=== PATIENT | female | born 1995 | race Caucasian/White ===

== ENCOUNTER 2019-01-01 00:05 | Inpatient (IN) | payer OTHER ==
[2019-01-01 00:34] LABS: APPEARANCE,URINE SLIGHTLY-CLOUDY; BILIRUBIN,URINE NEGATIVE (NEGATIVE); COLOR,URINE YELLOW; GLUCOSE, URINE NEGATIVE (NEGATIVE); KETONES,URINE NEGATIVE (NEGATIVE); LEUKOCYTE ESTERASE,URINE SMALL (NEGATIVE); NITRITE,URINE NEGATIVE (NEGATIVE); PROTEIN,URINE NEGATIVE (NEGATIVE); URINE SPECIFIC GRAVITY 1.011; UROBILINOGEN,URINE NEGATIVE mg/dL (<2.0)
[2019-01-01 00:59] LABS: URINE AMPHETAMINES SCREEN NEGATIVE; URINE BARBITURATES SCREEN NEGATIVE; URINE BENZODIAZEPINES SCREEN NEGATIVE; URINE COCAINE SCREEN NEGATIVE; URINE MARIJUANA (THC) SCREEN NEGATIVE; URINE METHADONE SCREEN NEGATIVE; URINE PHENCYCLIDINE SCREEN NEGATIVE
[2019-01-01] MEDS ORDERED: RINGERS SOLUTION,LACTATED 1,000 ML IV ONE (00:59)
[2019-01-01 01:26] LABS: ABSOLUTE BASOPHILS # (AUTO) 0.1 10^3/uL (0.0-0.2); ABSOLUTE EOSINOPHILS # (AUTO) 0.2 10^3/uL (0.0-0.6); ABSOLUTE LYMPHOCYTES (AUTO) 2.6 10^3/uL (0.5-4.7); ABSOLUTE MONOCYTES (AUTO) 1.3 10^3/uL (0.1-1.4); ABSOLUTE NEUT (AUTO) 8.6 10^3/uL (1.7-8.2); EOSINOPHILS % (AUTO) 1.9 % (0-6); HEMATOCRIT 38.7 % (36.0-47.0); HEMOGLOBIN 13.4 g/dL (12.0-15.5); LYMPHOCYTES % (AUTO) 20.4 % (13-45); MEAN CORPUSCULAR HGB CONC 34.6 g/dL (32.0-36.0); MEAN CORPUSCULAR VOLUME 90 fl (80-97); PLATELET COUNT 195 10^3/uL (150-450); RED BLOOD COUNT 4.32 10^6/uL (3.72-5.28); RED CELL DISTRIBUTION WIDTH 12.8 % (11.5-14.0); SEGMENTED NEUTROPHILS % (AUTO) 66.7 % (42-78); TOTAL CELLS COUNTED % (AUTO) 100 %; WHITE BLOOD COUNT 12.8 10^3/uL (4.0-10.5)
[2019-01-01] MEDS: RINGERS SOLUTION,LACTATED 1,000 ML IV PRN ×3 (01:28→03:20)
[2019-01-01] MEDS ORDERED: VANCOMYCIN HCL INJ 1000 MG VIAL ONE (02:11)
--- NOTE | 2019-01-01 02:12 | Admission Physical ---
Datetime Report Generated by CPN: 01/01/2019 02:12 CURRENT ADMISSION Chief Complaint: Uterine Contractions Indication for Induction: Not Applicable; PROM Admit Impression : Term, Intrauterine Admit Plan: Initiate Labor Protocol ALLERGIES Medication Allergies: Yes Medication Allergies: Penicillins (01/01/2019) Latex: No Latex Allergies OBSTETRICAL HISTORY EDC: 01/02/2019 00:00 : 1 Para: 0 Term: 0 : 0 SAB: 0 IAB: 0 Ectopic: 0 Livin Cesareans: 0 VBACs: 0 Multiple Births: 0 Gestational Diabetes: No Rh Sensitization: No Incompetent Cervix: No JOSE F: No Infertility: No ART Treatment: No Uterine Anomaly: No IUGR: No Hx Previous C/S: No Macrosomia: No Hx Loss/Stillborn: No PIH: No Hx : No Placenta Previa/Abruption: No Depression/PP Depression: No PTL/PROM: No Post Hemorrhage: No Current Procedures: Ultrasound Obstetrical History Comments: G1-Current SEE RECORDS Alcohol: No Marijuana : No Cocaine: No Other Illicit Drugs: No Cigarettes: Never Smoker. 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 Surgery: No Heart Disease: No Hosp/Surgery: Yes Autoimmune Disorder: No Anesthetic Complications: No Kidney Disease: No Abnormal Pap Smear: No Neuro/Epilepsy: No Psychiatric Disorders: No Other Medical Diseases: No Hepatitis/Liver Disease: No Significant Family History: No Varicosities/Phlebitis: No Trauma/Violence : No Thyroid Dysfunction: No Medical History Comments: wisdom teeth removed INFECTIOUS HISTORY Gonorrhea: No Genital Herpes: No Chlamydia: No Tuberculosis: No Syphilis: No Hepatitis: No HIV/AIDS Exposure: No Rash or Viral Illness: No HPV: No PHYSICAL EXAM General: Normal HEENT: Normal Neurologic: Normal Thyroid: Normal Heart: Normal Lungs: Normal Breast: Deferred Back: Normal Abdomen: Normal Genitourinary Exam: Normal Extremities: Normal DTRs: Normal Pelvic Type: Adequate FETUS A EGA: 39.6 PLANS FOR LABOR AND DELIVERY Labor and Delivery: None Pain Management: Epidural Feeding Preference: Breast Benefit of Breast Feed Discussed: Yes Circumcision: N/A INFORMED CONSENT Signature: with User ID: [email or web address]
[2019-01-01] MEDS ORDERED: EPHEDRINE SULFATE INJ 50 MG/1 ML AMPULE ONE (02:35)
[2019-01-01] MEDS ORDERED: MISOPROSTOL 0.2 MG TABLET ONE (02:35)
[2019-01-01] MEDS ORDERED: PHENYLEPHRINE HCL INJ/PF 10 MG/1 ML SDV ONE (02:35)
[2019-01-01] MEDS ORDERED: FENTANYL CITRATE INJ/PF 100 MCG/2 ML AMPUL ONE (02:35)
[2019-01-01] MEDS ORDERED: OXYTOCIN/NORMAL SALINE 20 UNIT/1,000 ML RTUINJ ONE (02:36)
[2019-01-01] MEDS ORDERED: FENTANYL/BUPIVACAINE/NS/PF 300 MCG/150 ML RTUINJ EPI ONE (02:36)
[2019-01-01] MEDS ORDERED: LIDOCAINE 1% INJ-PF (10 MG/ML) 30 ML SDV ONE (02:36)
[2019-01-01] MEDS ORDERED: BUPIVACAINE HCL 0.25 % INJ/PF (2.5 MG/1 ML) 30 ML VIAL ONE (02:36)
[2019-01-01] MEDS ORDERED: VANCOMYCIN HCL 500 MG in DEXTROSE 5%-WATER 100 ML IV ONE (03:00)
[2019-01-01] MEDS ORDERED: OXYTOCIN/NORMAL SALINE 20 UNIT/1,000 ML RTUINJ IV PRN ×2 (06:21→11:48)
[2019-01-01] MEDS ORDERED: VANCOMYCIN HCL 1,000 MG in DEXTROSE 5%-WATER 250 ML IV SCH ×2 (10:00→14:00)
[2019-01-01] MEDS ORDERED: OXYTOCIN 10 UNIT/ML VIAL ONE (11:23)
[2019-01-01] MEDS ORDERED: DIPHENHYDRAMINE HCL 25 MG CAPSULE PO PRN (11:48)
[2019-01-01] MEDS ORDERED: DIBUCAINE 1% OINTMENT 56 GM TP PRN (11:48)
[2019-01-01] MEDS ORDERED: MEASLES,MUMPS&RUBELLA VACC/PF 0.5 ML VIAL SUBCUT PRN (11:48)
[2019-01-01] MEDS ORDERED: PROMETHAZINE HCL 25 MG SUPP.RECT PR PRN (11:48)
[2019-01-01] MEDS ORDERED: MISOPROSTOL 0.2 MG TABLET PR PRN (11:48)
[2019-01-01] MEDS ORDERED: GLYCERIN/WITCH HAZEL LEAF 1 EACH MED..WIPE TP PRN (11:48)
[2019-01-01] MEDS ORDERED: ACETAMINOPHEN WITH CODEINE #3 TABLET PO PRN (11:48)
[2019-01-01] MEDS ORDERED: BENZOCAINE/MENTHOL AEROSOL SPRAY 56 ML TOP PRN (11:48)
[2019-01-01] MEDS ORDERED: MAGNESIUM HYDROXIDE SUSP 30 ML UDCUP PO PRN (11:48)
[2019-01-01] MEDS ORDERED: NA PHOS,M-B/NA PHOS,DI-BA (ADULT) 133 ML ENEMA PR PRN (11:48)
[2019-01-01] MEDS ORDERED: PSEUDOEPHEDRINE HCL 30 MG TABLET PO PRN (11:48)
[2019-01-01] MEDS ORDERED: ACETAMINOPHEN 650 MG SUPP.RECT PR PRN (11:48)
[2019-01-01] MEDS ORDERED: PROMETHAZINE HCL INJ 25 MG/1 ML VIAL IV PRN (11:48)
[2019-01-01] MEDS ORDERED: PROMETHAZINE HCL 25 MG TABLET PO PRN (11:48)
[2019-01-01] MEDS ORDERED: DIPH/PERTUSS(ACELL)/TETANUS VAC/PF 0.5 ML SYR (>=10YO) IM PRN (11:48)
[2019-01-01] MEDS ORDERED: BENZOCAINE/MENTHOL AEROSOL SPRAY 56 ML ONE (12:41)
[2019-01-01 14:01] LABS: RUBELLA INTERPRETATION POSITIVE
--- NOTE | 2019-01-01 14:06 | Delivery Summary ---
Del Sum A-C Datetime Report Generated by CPN: 01/01/2019 14:06 DELIVERY PERSONNEL DELIVERY PERSONNEL: [id number] Delivery Doctor:: Christie Leahy CNM Labor and Delivery Nurse:: Lila Peres RN Rat Poisoner/ORACLE SOA ARCHITECT: Joan Vega, WATER MECHANIC Rat Poisoner/ORACLE SOA ARCHITECT: Brenda, WATER MECHANIC Additional Personnel: : She Julian, RN MATERNAL INFORMATION Delivery Anesthesia: Epidural Medications After Delivery: Pitocin 10 Units IM Maternal Complications: None Provider Comments: viable female from OP to YOSEPH over 2nd degree laceration, tight nuchal cord, unable to reduce before delivery, placed on mothers abd, cord clamped after 2 minutes by father of baby, baby vigorously crying, spont delivery of grossly nl intact placenta, 3 VS, lacerations repaired without difficulty, FFFM, cytotec 600 mcg and Pitocin 10 IM due to IV out Baby and mom remain in recovery in stable condition (Annotations: Data stored by CPN on behalf of user) LABOR SUMMARY EDC: 01/02/2019 00:00 No. Babies in Womb: 1 Attempted: No Labor Anesthesia: Epidural LABOR INFORMATION Reason for Induction: Not Applicable Onset of Labor: 01/01/2019 23:20 Complete Dilatation: 01/01/2019 09:09 Oxytocin: Augmentation Group B Beta Strep: Positive Antibiotics # of Doses: 1 Antibiotics Time of Last Dose: 2158 Name of Antibiotic Given: Vancomycin Steroids Given: None Reason Steroids Not Administered: Not Applicable MEMBRANES Membranes Rupture Method: Spontaneous Rupture of Membranes: 12/31/2018 23:20 Length of Rupture (hr): 12.00 Amniotic Fluid Color: Clear Amniotic Fluid Amount: Moderate Amniotic Fluid Odor: Normal STAGES OF LABOR Stage 1 hr: -14 Stage 1 min: -11 Stage 2 hr: 2 Stage 2 min: 11 Stage 3 hr: 0 Stage 3 min: 5 Total Time in Labor hr: -11 Total Time in Labor min: -55 VAGINAL DELIVERY Episiotomy: None Laceration #1: Perineal; Vaginal Laceration Extension #1: Second Degree Laceration Repair: Yes Laceration Repair Note: 2-0 chromic without difficulty, 1% Xylocaine Sponge Count Correct: Yes Sharps Count Correct: Yes CSECTION DELIVERY Primary Indication: N/A Secondary Indication: N/A CSection Incidence: N/A Labor: N/A Elective: N/A CSection Incision: N/A BABY A INFORMATION Delivery Date/Time: 01/01/2019 11:20 Method of Delivery: Vaginal Born in Route : No : N/A Forceps: N/A Vacuum Extraction: N/A Shoulder Dystocia : No PRESENTATION/POSITION BABY A Presentation: Cephalic Cephalic Presentation: Vertex Vertex Position: Occipital Posterior Breech Presentation: N/A PLACENTA INFORMATION BABY A Placenta Delivery Time : 01/01/2019 11:25 Placenta Method of Delivery: Spontaneous Placenta Status: Delivered SCORES BABY A Heart Rate 1 min: >100 bpm Resp Effort 1 min: Good Cry Reflex Irritability 1 min: Cough or Sneeze or Pulls Away Muscle Tone 1 min: Active Motion Color 1 min: Blue/Pale Resuscitation Effort 1 min: Tactile Stimulation SCORE 1 MIN: 8 Heart Rate 5 min: >100 bpm Resp Effort 5 min: Good Cry Reflex Irritability 5 min: Cough or Sneeze or Pulls Away Muscle Tone 5 min: Active Motion Color 5 min: Body [place], Extremities Blue Resuscitation Effort 5 min: N/A SCORE 5 MIN: 9 INFORMATION BABY A Gestational Age at Delivery: 39.6 Gestational Status: Full Term- 39- 40.6 Weeks Outcome : Liveborn Condition : Stable Infant Sex: Female WEIGHT/LENGTH BABY A Birthweight (gm): 3950 Infant Weight (lb): 8 Infant Weight (oz): 11 Infant Length (in): 21.25 Length (cm): 53.98 CORD INFORMATION BABY A No. Cord Vessels: 3 Nuchal Cord : Around Neck x1, Loose Cord Blood Taken: Yes-For Eval (Mom's Blood Type - or O+) Suction: None ASSESSMENT BABY A Infant Complications: None Physical Findings at Delivery: Molding of the Head Infant Respirations: Appears Normal Skin to Skin: Yes Skin to Skin Time (min): 100 Cash Teller/ALS Called : No Infant Care By: Jennifer Julian RN BABY B INFORMATION : N/A
[2019-01-01] MEDS: IBUPROFEN 800 MG TABLET PO SCH ×2 (15:17→21:49)
[2019-01-01] MEDS: DOCUSATE SODIUM 100 MG CAPSULE PO SCH (17:22)
[2019-01-01] MEDS: FERROUS SULFATE 325 MG TABLET PO SCH (17:22)
[2019-01-01] MEDS: ACETAMINOPHEN WITH CODEINE #3 TABLET PO PRN (20:17)
[2019-01-01] MEDS: FAMOTIDINE 20 MG TABLET PO SCH (21:49)
[2019-01-02] MEDS: IBUPROFEN 800 MG TABLET PO SCH ×3 (06:06→21:47)
[2019-01-02 07:03] LABS: HEMATOCRIT 36.5 % (36.0-47.0); HEMOGLOBIN 12.5 g/dL (12.0-15.5); MEAN CORPUSCULAR HEMOGLOBIN 31.3 pg (27.0-33.4); MEAN CORPUSCULAR HGB CONC 34.3 g/dL (32.0-36.0); MEAN CORPUSCULAR VOLUME 91 fl (80-97); PLATELET COUNT 193 10^3/uL (150-450); RED BLOOD COUNT 3.99 10^6/uL (3.72-5.28); RED CELL DISTRIBUTION WIDTH 13.2 % (11.5-14.0); WHITE BLOOD COUNT 15.5 10^3/uL (4.0-10.5)
--- NOTE | 2019-01-02 09:46 | PDOC PROGRESS REPORT ---
Subjective-OB Progress Note for:: 01/02/19 Subjective: Doing well, no c/o, FOB at BS, both resting Physical Exam (OB) Vital Signs: Temp Pulse Resp BP Pulse Ox 98.2 F 62 18 100/52 L 99 01/02/19 08:20 01/02/19 08:20 01/02/19 08:20 01/02/19 08:20 01/02/19 08:20 Intake & Output 01/01/19 01/02/19 01/03/19 06:59 06:59 06:59 Intake Total 233 Balance 233 Weight 82 kg - PIH/Pre-Eclampsia DTR's: 1 + Clonus: Negative Headache: Absent Epigastric Pain: No Visual Changes: No - Lochia Lochia Amount: Small 10-25 ml Lochia Color: Serosa/Brown - Abdomen Description: Tender, Soft Hernia Present: No Fundal Description: Firm Fundal Height: u/u - u/2 Objective-Diagnostic Laboratory: 01/02/19 06:40 01/02/19 06:40 WBC 15.5 H RBC 3.99 Hgb 12.5 Hct 36.5 MCV 91 MCH 31.3 MCHC 34.3 RDW 13.2 Plt Count 193 Assessment and Plan(PN) - Assessment and Plan (1) Obstetric vaginal laceration with second degree perineal laceration Is this a current diagnosis for this admission?: Yes (2) Delivery normal Is this a current diagnosis for this admission?: Yes - Time Spent with Patient Time with patient: Less than 15 minutes Medications reviewed and adjusted accordingly: Yes - Disposition Anticipated Discharge: Home Within: within 24 hours
[2019-01-02] MEDS: SENNOSIDES/DOCUSATE 8.6-50 MG 1 EACH TABLET PO SCH (09:58)
[2019-01-02] MEDS: FAMOTIDINE 20 MG TABLET PO SCH ×2 (09:58→21:47)
[2019-01-02] MEDS: DOCUSATE SODIUM 100 MG CAPSULE PO SCH ×2 (09:58→18:00)
[2019-01-02] MEDS: FERROUS SULFATE 325 MG TABLET PO SCH ×2 (09:58→18:00)
[2019-01-02] MEDS: PRENATAL VITAMIN W DHA CAPSULE PO SCH (09:58)
[2019-01-02 18:03] LABS: HEPATITS B SURFACE ANTIGEN Negative (Negative)
[2019-01-03] MEDS: ACETAMINOPHEN WITH CODEINE #3 TABLET PO PRN (03:31)
[2019-01-03] MEDS: IBUPROFEN 800 MG TABLET PO SCH (05:49)
[2019-01-03 08:16] VITALS: BP 115/61
[2019-01-03] MEDS: FERROUS SULFATE 325 MG TABLET PO SCH (09:12)
[2019-01-03] MEDS: PRENATAL VITAMIN W DHA CAPSULE PO SCH (09:12)
[2019-01-03] MEDS: SENNOSIDES/DOCUSATE 8.6-50 MG 1 EACH TABLET PO SCH (09:12)
[2019-01-03] MEDS: FAMOTIDINE 20 MG TABLET PO SCH (09:12)
[2019-01-03] MEDS: DOCUSATE SODIUM 100 MG CAPSULE PO SCH (09:12)
--- NOTE | 2019-01-03 09:44 | PDOC PROGRESS REPORT ---
Subjective-OB Progress Note for:: 01/03/19 Subjective: Doing well, asleep with family at BS, hsb holding baby, Physical Exam (OB) Vital Signs: Temp Pulse Resp BP Pulse Ox 98.2 F 63 16 115/61 100 01/03/19 07:43 01/03/19 07:43 01/03/19 07:43 01/03/19 07:43 01/03/19 07:43 - PIH/Pre-Eclampsia DTR's: 1 + Clonus: Negative Headache: Absent Epigastric Pain: No Visual Changes: No - Lochia Lochia Amount: Small 10-25 ml Lochia Color: Rubra/Red - Abdomen Description: Soft, Round Hernia Present: No Fundal Description: Firm, Midline Fundal Height: u/u - u/2 Objective-Diagnostic Laboratory: 01/02/19 06:40 Assessment and Plan(PN) - Assessment and Plan (1) Obstetric vaginal laceration with second degree perineal laceration Is this a current diagnosis for this admission?: Yes (2) Delivery normal Is this a current diagnosis for this admission?: Yes - Time Spent with Patient Medications reviewed and adjusted accordingly: Yes - Disposition Anticipated Discharge: Home Within: within 24 hours
--- NOTE | 2019-01-03 09:49 | PDOC DISCHARGE SUMMARY ---
Final Diagnosis Discharge Date: 01/03/19 - Final Diagnosis (1) Obstetric vaginal laceration with second degree perineal laceration Is this a current diagnosis for this admission?: Yes (2) Delivery normal Is this a current diagnosis for this admission?: Yes Discharge Data - Discharge Medication Home Medications: Vits96/Iron Fum/Folic [ Tablet] 1 each PO DAILY 01/01/19 Gestational Age: 39.6 Reason(s) for Admission: Onset of Labor, Group B Strep Positive Procedures: Ultrasound Intrapartum Procedure(s): Spontaneous Vaginal Delivery Complication(s): Laceration-Vaginal, Laceration-Perineal Laceration-Degree: 2nd - Data Baby 1 Female at 1 minute: 8 at 5 minutes: 9 Weight: 3.941 kg Home with Mother: Yes Complications: No - Diagnosis Test Laboratory: Temp Pulse Resp BP Pulse Ox 98.2 F 63 16 115/61 100 01/03/19 07:43 01/03/19 07:43 01/03/19 07:43 01/03/19 07:43 01/03/19 07:43 01/01/19 01/01/19 01/02/19 00:11 01:10 06:40 RBC 4.32 3.99 Hgb 13.4 12.5 Hct 38.7 36.5 Urine Opiates Screen NEGATIVE - Discharge information/Instructions Discharge Activity: Activity As Tolerated, No Lifting Over 10 Pounds, No Lifting/Push/Pulling, Pelvic Rest Discharge Diet: As Tolerated, Regular Disposition: HOME, SELF-CARE Follow up with: [facility] in: 3, Weeks
== END 2019-01-03 14:50 | disposition home or self-care (01) | DRG 807 ==
LOC: LC 00:05 → LR 01:12 → 2S 15:25
PROVIDERS: ADMIT Obstetrics & Gynecology Gynecology; ATTEND Obstetrics & Gynecology Gynecology
PROC: 10E0XZZ Delivery of Products of Conception, External Approach (ICD-10-PCS; principal; 2019-01-01)
PROC: 0KQM0ZZ Repair Perineum Muscle, Open Approach (ICD-10-PCS; 2019-01-01)
PROC: 4A1HXCZ Monitoring of Products of Conception, Cardiac Rate, External Approach (ICD-10-PCS; 2019-01-01)
DX: O99.824 Streptococcus B carrier state complicating childbirth (principal); Z37.0 Single live birth; O69.1XX0 Labor and delivery complicated by cord around neck, with compression, not applicable or unspecified; O70.1 Second degree perineal laceration during delivery; Z3A.39 39 weeks gestation of pregnancy; Z88.0 Allergy status to penicillin
CPT/HCPCS: 36415; 80307; 81005; 84112; 85025; 85027; 86592; 86762; 86850; 86900; 86901; 87340; 94760; J2370; J2590; J3010; J3370; J3490; J7060